=== PATIENT | male | born 1940 | race Caucasian/White ===

== ENCOUNTER 2019-07-24 19:09 | Inpatient (IN) | payer MEDICARE, OTHER ==
[~2019-07-24] VITALS: Ht 188 cm; Wt 100.0 kg
[~2019-07-24 19:09] MED LIST: ALBU8HFA PO; ASPI81TA52 PO; ATOR20TA PO; BETA1TAB19 PO; BUDE10.2 INH; CARV3.12 PO; FLUT16SP26 BOTHNARES; HYDR-4353 PO; LACT1CAP65 PO; MELO7.5T12 PO; METH4TAB81 PO; OMEG1CAP2; OMEP40CA13 PO; TICA90TA PO; [UNRECOGNIZED DRUG - CODE] PO
--- NOTE | 2019-07-24 20:06 | NUR ---
Patient in room . I have received report from Benjamin OCHOA at [facility] and had the opportunity to ask questions and assume patient care.
[2019-07-24 20:35] VITALS: BP 150/90
--- NOTE | 2019-07-24 20:54 | NUR ---
PAGER ID: [phone] MESSAGE: [phone] Benigno Lopez: Pt is a direct admit from [facility]. He has arrived to the floor. -Sydni OCHOA [phone]
[2019-07-24] MEDS ORDERED: ondansetron/PF 4mg/2ml inj IV PRN (21:05)
[2019-07-24] MEDS ORDERED: mag hydrox/Alum hydrox/simeth 30ml oral suspension PO PRN (21:05)
[2019-07-24] MEDS ORDERED: acetaminophen 325mg tablet PO PRN (21:05)
[2019-07-24] MEDS ORDERED: magnesium hydroxide 30ml (MOM) UD suspension PO PRN (21:05)
[2019-07-24] MEDS ORDERED: magnesium Cl slow-release 64mg tablet PO PRN (21:10)
[2019-07-24] MEDS ORDERED: magnesium 2GM in 50ml NS 50 ML IV PRN (21:10)
[2019-07-24] MEDS ORDERED: potassium Cl 20 mEq SR tablet PO PRN ×2 (21:10)
[2019-07-24] MEDS ORDERED: potassium CL 10mEq/100ml bag 100 ML IV PRN ×2 (21:10)
[2019-07-24] MEDS ORDERED: magnesium 4gm in 100ml NS 100 ML IV PRN (21:10)
--- NOTE | 2019-07-24 21:31 | NUR ---
PAGER ID: [phone] MESSAGE: [phone] Benigno Lopez: Pts med rec is complete. He would also like to discuss code status at some point. He does not want ventilation. -Sydni OCHOA [phone]
--- NOTE | 2019-07-24 21:39 | NUR ---
Patient arrived to the floor at 2030 via gurney as a direct admission from [facility]. Skin check complete. darting complete. VSS. Oriented patient to room, medication times, meal times, vital signs times, and unit policies.
[2019-07-24 22:00] VITALS: BP 152/94
[2019-07-24] MEDS ORDERED: fluticasone nasal spray 16GM bottle NS PRN (22:45)
[2019-07-24] MEDS ORDERED: albuterol 2.5 MG/3 ML nebule NEB PRN (22:45)
[2019-07-24] MEDS: budesonide 0.5mg/2ml UD nebule IH SCH (22:45)
[2019-07-25] VITALS (11 sets, daily range): BP systolic 107–164; BP diastolic 59–94
[2019-07-25] MEDS: albuterol 2.5 MG/3 ML nebule NEB SCH ×4 (02:00→20:55)
[2019-07-25 05:59] LABS: BASOPHILS # (AUTO) 0.1 X10'3 (0-0.2); BASOPHILS % (AUTO) 1.4 % (0-1); EOSINOPHILS # (AUTO) 0.1 X10'3 (0-0.9); EOSINOPHILS % (AUTO) 1.7 % (0-6); HEMATOCRIT 43.9 % (42.0-52.0); HEMOGLOBIN 14.3 g/dl (14.0-17.9); LYMPHOCYTES # (AUTO) 1.9 X10'3 (1.1-4.8); LYMPHOCYTES % (AUTO) 24.3 % (21-51); MEAN CORPUSCULAR HEMOGLOBIN 27.6 PG (27.0-31.0); MEAN CORPUSCULAR HGB CONC 32.5 g/dL (33.0-36.5); MEAN CORPUSCULAR VOLUME 85.1 FL (78-98); MEAN PLATELET VOLUME 7.2 FL (7.4-10.4); MONOCYTES # (AUTO) 0.7 X10'3 (0-0.9); MONOCYTES % (AUTO) 9.2 % (2-12); NEUTROPHILS # (AUTO) 4.8 X10'3 (1.8-7.7); NEUTROPHILS % (AUTO) 63.4 % (42-75); PLATELET COUNT 258 X10'3 (140-440); RED BLOOD COUNT 5.16 X10'6 (4.70-6.10); RED CELL DISTRIBUTION WIDTH 15.8 % (11.5-14.5); WHITE BLOOD COUNT 7.6 X10'3 (4.5-11.0)
--- NOTE | 2019-07-25 06:04 | NUR ---
Notified PAGER ID: [phone] MESSAGE: [phone] Benigno Lopez: c/o chest pain. needs order for nitro. ext [phone]
--- NOTE | 2019-07-25 06:17 | NUR ---
Problems reprioritized. Patient report given, questions answered & plan of care reviewed with Sofya OCHOA.
[2019-07-25] MEDS: nitroGLYCERIN 0.4mg SUBLingual tab SL PRN ×2 (06:20→15:10)
[2019-07-25 06:24] LABS: ALANINE AMINOTRANSFERASE 19 U/L (12-78); ALBUMIN 3.4 G/DL (3.4-5.0); ALKALINE PHOSPHATASE 70 IU/L (46-116); ANION GAP 10 (8-16); ASPARTATE AMINO TRANSFERASE 14 U/L (10-37); BILIRUBIN,TOTAL 0.5 MG/DL (0.1-1.0); BLOOD UREA NITROGEN 20 MG/DL (7-18); BUN/CREATININE RATIO 17.5 (5.4-32.0); CALCIUM 9.2 MG/DL (8.5-10.1); CHLORIDE 105 MMOL/L (99-107); CREATININE 1.14 MG/DL (0.60-1.10); GLUCOSE 92 MG/DL (70-104); MAGNESIUM 1.9 MG/DL (1.5-2.4); SODIUM 141 MMOL/L (135-145); TOTAL CARBON DIOXIDE 26.2 MMOL/L (24-32); TOTAL PROTEIN 6.7 G/DL (6.4-8.2); eGFR 62 ML/MIN
[2019-07-25] MEDS: HYDROcodone/acetaminophen 10/325mg tab PO PRN ×2 (06:57→13:36)
--- NOTE | 2019-07-25 07:00 | NUR ---
Patient in room PCU 3018. I have received report from Sofya OCHOA and had the opportunity to ask questions and assume patient care. During report was informed that the patient had been c/o chest pain and was just given a nitro at 0616, upon me entering the room after 0630 patient whad no c/o chest pain but was having back pain at that time and requesting a norco. Will continue to monitor.
--- NOTE | 2019-07-25 07:00 | NUR ---
Patient requested to have a norco, although there is hydrocodone and acetaminophen listed as an allergy. Patient states he takes norco at home for his chronic pain and that the allergy was from vicodin.
--- NOTE | 2019-07-25 07:30 | NUR ---
Patient was prepped for heart cath, other than a new PIV. Received in report that the patient is going to be cathed today.
[2019-07-25] MEDS: aspirin 81mg tablet.DR PO SCH (07:42)
[2019-07-25] MEDS: pantoprazole 40mg Tablet.DR PO SCH (07:42)
[2019-07-25] MEDS: atorvastatin 20mg tablet PO SCH (07:42)
[2019-07-25] MEDS: docusate sod 100mg capsule PO SCH ×2 (07:43→20:00)
[2019-07-25] MEDS: budesonide 0.5mg/2ml UD nebule IH SCH ×2 (07:57→20:55)
[2019-07-25] MEDS ORDERED: lisinopril 20mg tablet PO SCH (08:00)
[2019-07-25] MEDS: enoxaparin 40mg/0.4ml syringe SQ SCH (08:00)
[2019-07-25] MEDS ORDERED: HYDROchlorothiazide 25mg tablet PO SCH (08:00)
[2019-07-25] MEDS: MELOXICAM 7.5MG PO SCH (08:00)
[2019-07-25] MEDS ORDERED: carVEDilol 3.125mg tablet PO SCH (08:00)
[2019-07-25] MEDS: K and/or MAG REPLACEMENT MC SCH ×2 (08:41→20:00)
[2019-07-25] MEDS ORDERED: LISI1TAB32 PO (09:43)
[2019-07-25] MEDS ORDERED: PRAV20TA4 PO (09:47)
[2019-07-25] MEDS ORDERED: lisinopril 10 MG tablet PO SCH ×2 (09:50)
[2019-07-25] MEDS ORDERED: HYDROchlorothiazide 12.5mg capsule PO SCH (09:51)
[2019-07-25] MEDS ORDERED: FLU VACC QS2019-20 36MOS UP/PF 60 MCG/0.5 ML SYRINGE IMVAC ONE (10:00)
[2019-07-25] MEDS: acetylcysteine 200 MG/ml 4ml vial PO SCH ×2 (10:40→20:00)
--- NOTE | 2019-07-25 10:41 | NUR ---
Patient in room PCU 3018. I have received report from Sofya OCHOA and had the opportunity to ask questions and assume patient care. Patient is awake and oriented, and ambulatory at this time. Patient was c/o back pain and requesting a norco. Will address pain medication and continue to monitor.
--- NOTE | 2019-07-25 10:52 | NUR ---
Malnutrition consult: Patient's wt stable from documented wt hx. Unable to assess PO intake at this time as pt currently NPO however pt reporting a regular appetite per H&P. Pt with no significant decrease in muscle strength or edema. Pt currently does not meet criteria for malnutrition. Will continue to follow. Addendum: 07/25/19 at [address] Amended: Links added.
[2019-07-25] MEDS: normal saline 1000ml 1,000 ML IV SCH ×2 (11:45→20:36)
--- NOTE | 2019-07-25 11:51 | NUR ---
Rm 3018B,White. Pt needs PIV for heart cath, tried 1x. Please advise on eta. Thanks
--- NOTE | 2019-07-25 13:05 | NUR ---
spoke with Dr. Victoria at bedside, new orders obtained for NS and mucoMyst. Patient plan is to go down for heart cath later this afternoon. Will continue to monitor.
[2019-07-25] MEDS ORDERED: nitroGLYCERIN-Tridil 50MG/D5W 250 ML IV ONE (16:56)
[2019-07-25] MEDS ORDERED: heparin 1,000unit/ml 10ml vial 10 ML ONE (16:56)
[2019-07-25] MEDS ORDERED: iohexol 350MG/ML 100ml bottle IV ONE (16:56)
[2019-07-25] MEDS ORDERED: iohexol 350 MG/ML 50ML vial IV ONE (16:56)
[2019-07-25] MEDS ORDERED: LIDOcaine 1% (10mg/ml)w/preservative injection 20ml MDV ONE (16:56)
[2019-07-25] MEDS ORDERED: midazolam 2 mg/2 ml injection ONE (16:56)
[2019-07-25] MEDS ORDERED: fentaNYL/PF 50MCG/1 ML 2ML syringe ONE (16:56)
[2019-07-25] MEDS ORDERED: verapamil 2.5 mg/ml inj IV ONE (17:21)
--- NOTE | 2019-07-25 18:22 | NUR ---
Problems reprioritized. Patient report given, questions answered & plan of care reviewed with Rosas OCHOA.
--- NOTE | 2019-07-25 18:23 | NUR ---
Patient in room PCU 3018. I have received report from Tracie Ha RN and had the opportunity to ask questions and assume patient care.
[2019-07-25] MEDS: carvedilol 6.25mg tablet PO SCH (20:34)
--- NOTE | 2019-07-25 20:44 | NUR ---
patient refused the rest of the post op vitals.
--- NOTE | 2019-07-26 02:36 | NUR ---
Patient refused 0200 vitals
[2019-07-26] MEDS: albuterol 2.5 MG/3 ML nebule NEB SCH ×2 (03:33→08:23)
[2019-07-26 05:19] LABS: BASOPHILS % (AUTO) 0.6 % (0-1); EOSINOPHILS # (AUTO) 0.1 X10'3 (0-0.9); EOSINOPHILS % (AUTO) 1.5 % (0-6); HEMATOCRIT 41.5 % (42.0-52.0); HEMOGLOBIN 13.9 g/dl (14.0-17.9); LYMPHOCYTES # (AUTO) 1.7 X10'3 (1.1-4.8); LYMPHOCYTES % (AUTO) 21.1 % (21-51); MEAN CORPUSCULAR HEMOGLOBIN 28.4 PG (27.0-31.0); MEAN CORPUSCULAR HGB CONC 33.4 g/dL (33.0-36.5); MEAN CORPUSCULAR VOLUME 85.2 FL (78-98); MEAN PLATELET VOLUME 7.2 FL (7.4-10.4); MONOCYTES # (AUTO) 0.8 X10'3 (0-0.9); NEUTROPHILS # (AUTO) 5.4 X10'3 (1.8-7.7); NEUTROPHILS % (AUTO) 66.8 % (42-75); PLATELET COUNT 249 X10'3 (140-440); RED BLOOD COUNT 4.87 X10'6 (4.70-6.10); RED CELL DISTRIBUTION WIDTH 15.9 % (11.5-14.5)
[2019-07-26 05:36] LABS: ALANINE AMINOTRANSFERASE 20 U/L (12-78); ALBUMIN 3.1 G/DL (3.4-5.0); ALKALINE PHOSPHATASE 65 IU/L (46-116); ANION GAP 8 (8-16); ASPARTATE AMINO TRANSFERASE 15 U/L (10-37); BILIRUBIN,TOTAL 0.3 MG/DL (0.1-1.0); BLOOD UREA NITROGEN 22 MG/DL (7-18); BUN/CREATININE RATIO 17.6 (5.4-32.0); CALCIUM 8.9 MG/DL (8.5-10.1); CHLORIDE 106 MMOL/L (99-107); CREATININE 1.25 MG/DL (0.60-1.10); GLUCOSE 102 MG/DL (70-104); MAGNESIUM 1.9 MG/DL (1.5-2.4); PHOSPHORUS 3.6 MG/DL (2.3-4.5); POTASSIUM 3.8 MMOL/L (3.5-5.1); SODIUM 142 MMOL/L (135-145); TOTAL CARBON DIOXIDE 28.3 MMOL/L (24-32); TOTAL PROTEIN 6.1 G/DL (6.4-8.2); eGFR 55 ML/MIN
[2019-07-26 06:00] VITALS: BP 122/55
--- NOTE | 2019-07-26 06:18 | NUR ---
Problems reprioritized. Patient report given, questions answered & plan of care reviewed with Cherry OCHOA.
--- NOTE | 2019-07-26 06:39 | NUR ---
Patient in room PCU 3018. I have received report from DON Gayle and had the opportunity to ask questions and assume patient care. Patient currently sleeping in bed, bed locked and low, call light in reach, no acute distress, will continue to monitor.
[2019-07-26] MEDS: atorvastatin 20mg tablet PO SCH (08:00)
[2019-07-26] MEDS: docusate sod 100mg capsule PO SCH (08:00)
[2019-07-26] MEDS: MELOXICAM 7.5MG PO SCH (08:00)
[2019-07-26] MEDS ORDERED: ezetimibe 10mg tablet PO SCH (08:00)
[2019-07-26] MEDS: acetylcysteine 200 MG/ml 4ml vial PO SCH (08:00)
[2019-07-26] MEDS: K and/or MAG REPLACEMENT MC SCH (08:00)
[2019-07-26] MEDS: HYDROcodone/acetaminophen 10/325mg tab PO PRN (08:07)
[2019-07-26] MEDS: carvedilol 6.25mg tablet PO SCH (08:09)
[2019-07-26 08:11] VITALS: BP_SYST 122
[2019-07-26] MEDS: aspirin 81mg tablet.DR PO SCH (08:11)
[2019-07-26] MEDS: enoxaparin 40mg/0.4ml syringe SQ SCH (08:14)
[2019-07-26] MEDS: pantoprazole 40mg Tablet.DR PO SCH (08:17)
[2019-07-26] MEDS: budesonide 0.5mg/2ml UD nebule IH SCH (08:23)
[2019-07-26] MEDS ORDERED: FLU VACC QS2019-20 36MOS UP/PF 60 MCG/0.5 ML SYRINGE IMVAC ONE (10:00)
--- NOTE | 2019-07-26 11:53 | NUR ---
Received order for patient to discharge to home. Patient belongings gathered, telemetry removed, IV removed, catheter tip intact, hemostasis achieved, wrist bands removed. NO new medications. appt made with Dr. Victoria's office for August 15 at 9:15Am, patient informed of appointment. Patient taken to vehicle via wheelchair, able to transfer self into vehicle. Stable at time of discharge.
== END 2019-07-26 11:40 | disposition home or self-care (01) | DRG 287 ==
LOC: PCU 3S 20:28 → UNDOADMIN 20:28 → PCU 3S 20:40
PROVIDERS: ADMIT Internal Medicine; ATTEND Family Medicine
PROC: 4A023N7 Measurement of Cardiac Sampling and Pressure, Left Heart, Percutaneous Approach (ICD-10-PCS; principal; 2019-07-25)
PROC: B2111ZZ Fluoroscopy of Multiple Coronary Arteries using Low Osmolar Contrast (ICD-10-PCS; 2019-07-25)
PROC: B2151ZZ Fluoroscopy of Left Heart using Low Osmolar Contrast (ICD-10-PCS; 2019-07-25)
PROC: 3E02340 Introduction of Influenza Vaccine into Muscle, Percutaneous Approach (ICD-10-PCS; 2019-07-26)
DX: I25.10 Atherosclerotic heart disease of native coronary artery without angina pectoris (principal); I13.0 Hypertensive heart and chronic kidney disease with heart failure and stage 1 through stage 4 chronic kidney disease, or unspecified chronic kidney disease; E78.5 Hyperlipidemia, unspecified; I50.9 Heart failure, unspecified; I73.9 Peripheral vascular disease, unspecified; J44.9 Chronic obstructive pulmonary disease, unspecified; K21.9 Gastro-esophageal reflux disease without esophagitis; M19.90 Unspecified osteoarthritis, unspecified site; N18.9 Chronic kidney disease, unspecified; I25.2 Old myocardial infarction; Z79.899 Other long term (current) drug therapy; Z87.891 Personal history of nicotine dependence; Z98.41 Cataract extraction status, right eye; Z98.42 Cataract extraction status, left eye; Z23 Encounter for immunization; Z88.8 Allergy status to other drugs, medicaments and biological substances; Z88.5 Allergy status to narcotic agent
CPT/HCPCS: 36415; 76937; 80053; 83735; 84100; 85025; 87081; 93005; 93458; 94640; 94760; 99152; 99153; 99285; A4620; A5120; A6258; C1769; C1894; G0378; J1644; J1650; J2001; J2250; J3010; J3490; J7030; J7626; Q2037; Q9967

== ENCOUNTER 2019-08-07 16:00 | Emergency (ER) | payer OTHER ==
[~2019-08-07] VITALS: Ht 188 cm; Wt 105.5 kg
[~2019-08-07 16:00] MED LIST changes: -ATOR20TA PO; +LISI1TAB32 PO; -METH4TAB81 PO; +PRAV20TA4 PO; -TICA90TA PO; -[UNRECOGNIZED DRUG - CODE] PO
[2019-08-07 16:35] LABS: BASOPHILS # (AUTO) 0.1 X10'3 (0-0.2); BASOPHILS % (AUTO) 0.9 % (0-1); EOSINOPHILS # (AUTO) 0.1 X10'3 (0-0.9); EOSINOPHILS % (AUTO) 0.4 % (0-6); HEMATOCRIT 43.1 % (42.0-52.0); LYMPHOCYTES # (AUTO) 2.5 X10'3 (1.1-4.8); LYMPHOCYTES % (AUTO) 19.7 % (21-51); MEAN CORPUSCULAR HEMOGLOBIN 27.5 PG (27.0-31.0); MEAN CORPUSCULAR HGB CONC 32.5 g/dL (33.0-36.5); MEAN CORPUSCULAR VOLUME 84.6 FL (78-98); MONOCYTES # (AUTO) 1.2 X10'3 (0-0.9); MONOCYTES % (AUTO) 9.6 % (2-12); NEUTROPHILS # (AUTO) 8.7 X10'3 (1.8-7.7); NEUTROPHILS % (AUTO) 69.4 % (42-75); PLATELET COUNT 281 X10'3 (140-440); RED BLOOD COUNT 5.09 X10'6 (4.70-6.10); RED CELL DISTRIBUTION WIDTH 16.3 % (11.5-14.5); WHITE BLOOD COUNT 12.5 X10'3 (4.5-11.0)
[2019-08-07 17:01] LABS: ALANINE AMINOTRANSFERASE 17 U/L (12-78); ALBUMIN 3.4 G/DL (3.4-5.0); ALKALINE PHOSPHATASE 65 IU/L (46-116); ANION GAP 9 (8-16); ASPARTATE AMINO TRANSFERASE 15 U/L (10-37); BILIRUBIN,TOTAL 0.3 MG/DL (0.1-1.0); BLOOD UREA NITROGEN 25 MG/DL (7-18); BUN/CREATININE RATIO 19.4 (5.4-32.0); CALCIUM 8.5 MG/DL (8.5-10.1); CHLORIDE 106 MMOL/L (99-107); CREATININE 1.29 MG/DL (0.60-1.10); GLUCOSE 87 MG/DL (70-104); POTASSIUM 4.3 MMOL/L (3.5-5.1); SODIUM 138 MMOL/L (135-145); TOTAL CARBON DIOXIDE 23.3 MMOL/L (24-32); TOTAL PROTEIN 6.7 G/DL (6.4-8.2); eGFR 53 ML/MIN
[2019-08-07] MEDS ORDERED: AMOX-419 PO (17:48)
[2019-08-07 18:52] VITALS: BP 151/82
== END 2019-08-07 18:51 | disposition home or self-care (01) ==
LOC: ER 16:00
DX: J40 Bronchitis, not specified as acute or chronic (principal); I10 Essential (primary) hypertension; K21.9 Gastro-esophageal reflux disease without esophagitis; G89.29 Other chronic pain; Z98.890 Other specified postprocedural states; Z88.1 Allergy status to other antibiotic agents; Z88.5 Allergy status to narcotic agent; Z88.8 Allergy status to other drugs, medicaments and biological substances; Z79.2 Long term (current) use of antibiotics; Z79.82 Long term (current) use of aspirin; Z79.899 Other long term (current) drug therapy
CPT/HCPCS: 36415; 71045; 80053; 83880; 84484; 85025; 85610; 93005; 99285

== ENCOUNTER 2020-01-16 14:49 | Emergency (ER) | payer OTHER, MEDICARE ==
[~2020-01-16] VITALS: Ht 188 cm; Wt 104.0 kg
[2020-01-16 15:43] LABS: BASOPHILS # (AUTO) 0.1 X10'3 (0-0.2); BASOPHILS % (AUTO) 0.7 % (0-1); EOSINOPHILS # (AUTO) 0.2 X10'3 (0-0.9); EOSINOPHILS % (AUTO) 1.7 % (0-6); HEMATOCRIT 38.5 % (42.0-52.0); HEMOGLOBIN 12.4 g/dl (14.0-17.9); LYMPHOCYTES # (AUTO) 2.4 X10'3 (1.1-4.8); LYMPHOCYTES % (AUTO) 25.8 % (21-51); MEAN CORPUSCULAR HEMOGLOBIN 28.9 PG (27.0-31.0); MEAN CORPUSCULAR HGB CONC 32.3 g/dL (33.0-36.5); MEAN CORPUSCULAR VOLUME 89.5 FL (78-98); MEAN PLATELET VOLUME 7.4 FL (7.4-10.4); MONOCYTES # (AUTO) 0.9 X10'3 (0-0.9); NEUTROPHILS # (AUTO) 5.7 X10'3 (1.8-7.7); NEUTROPHILS % (AUTO) 61.8 % (42-75); PLATELET COUNT 252 X10'3 (140-440); RED CELL DISTRIBUTION WIDTH 13.6 % (11.5-14.5); WHITE BLOOD COUNT 9.2 X10'3 (4.5-11.0)
[2020-01-16 16:00] LABS: ALANINE AMINOTRANSFERASE 29 U/L (12-78); ALBUMIN 3.3 G/DL (3.4-5.0); ALBUMIN/GLOBULIN RATIO 1.1 (1.1-1.5); ALKALINE PHOSPHATASE 62 IU/L (46-116); ANION GAP 6 (8-16); ASPARTATE AMINO TRANSFERASE 21 U/L (10-37); BILIRUBIN,TOTAL 0.3 MG/DL (0.1-1.0); BLOOD UREA NITROGEN 22 MG/DL (7-18); BUN/CREATININE RATIO 16.5 (5.4-32.0); CALCIUM 8.6 MG/DL (8.5-10.1); CHLORIDE 106 MMOL/L (99-107); CREATININE 1.33 MG/DL (0.60-1.10); GLUCOSE 84 MG/DL (70-104); POTASSIUM 4.1 MMOL/L (3.5-5.1); SODIUM 140 MMOL/L (135-145); TOTAL CARBON DIOXIDE 27.6 MMOL/L (24-32); TOTAL PROTEIN 6.2 G/DL (6.4-8.2); eGFR 52 ML/MIN
--- NOTE | 2020-01-16 16:55 | NUR ---
pt is awating a 2 hr troponin lab then he will be re-evaluated
[2020-01-16 18:19] VITALS: BP 179/98
== END 2020-01-16 18:22 | disposition home or self-care (01) ==
LOC: ER 14:49
DX: R07.89 Other chest pain (principal); K30 Functional dyspepsia; I10 Essential (primary) hypertension; K21.9 Gastro-esophageal reflux disease without esophagitis; G89.29 Other chronic pain; Z98.890 Other specified postprocedural states; Z88.1 Allergy status to other antibiotic agents; Z88.8 Allergy status to other drugs, medicaments and biological substances; Z79.82 Long term (current) use of aspirin; Z79.899 Other long term (current) drug therapy
CPT/HCPCS: 36415; 71045; 80053; 83880; 84484; 85025; 93005; 99285

== ENCOUNTER 2022-06-17 09:17 | Inpatient (IN) | payer OTHER ==
[2022-06-17] VITALS (22 sets, daily range): BP systolic 119–169; BP diastolic 43–86
[~2022-06-17] VITALS: Ht 188 cm; Wt 96.0 kg
[~2022-06-17 09:17] MED LIST changes: -BETA1TAB19 PO; -BUDE10.2 INH; +CETI10TA15 PO; +COLC0.6T72 PO; +DEXA6TAB PO; +DICL100G30 TOP; +DOCUMENT DATE & TIME OF BETA-BLOCKER PO ONE; +HYDR30CR79 TOP; +LACT1CAP26 PO; -LACT1CAP65 PO; -LISI1TAB32 PO; +LISI20TA28 PO; -MELO7.5T12 PO; -OMEG1CAP2; +OMEG1CAP2 PO; -OMEP40CA13 PO; +OMEP40CA21 PO; +PHEN1SUP96 PR; +[UNRECOGNIZED DRUG - CODE] TP; +famotidine 20mg tablet PO ONE
[2022-06-17] MEDS ORDERED: PHENYLephrine 10mg/ml inj. 50 MG in normal saline 250ml IV soln 245 ML IV PRN (10:25)
[2022-06-17] MEDS: ringers solution, lacted 1,000 ML IV SCH ×2 (10:25→20:40)
[2022-06-17] MEDS ORDERED: nitroPRUSSIDE 0.2mg/mL in NS 100 ML IV PRN (10:25)
[2022-06-17 11:12] LABS: ALBUMIN 2.8 G/DL (3.4-5.0); ALBUMIN/GLOBULIN RATIO 0.8 (1.1-1.5); ALKALINE PHOSPHATASE 71 IU/L (46-116); BLOOD UREA NITROGEN 18 MG/DL (7-18); BUN/CREATININE RATIO 13.7 (5.4-32.0); CALCIUM 8.9 MG/DL (8.5-10.1); CHLORIDE 106 MMOL/L (99-107); CREATININE 1.31 MG/DL (0.60-1.10); PRE OP ALT 27 U/L (30-65); PRE OP ANION GAP 8 (8-16); PRE OP AST 28 U/L (10-37); PRE OP BILIRUB, TOTAL 0.3 MG/DL (0.0-1.0); PRE OP GLUCOSE 88 MG/DL (70-104); PRE OP SODIUM 141 MMOL/L (135-145); TOTAL CARBON DIOXIDE 26.7 MMOL/L (24-32); TOTAL PROTEIN 6.1 G/DL (6.4-8.2); eGFR 52 ML/MIN
[2022-06-17] MEDS ORDERED: diazepam 5mg tablet PO ONE (11:20)
[2022-06-17 11:45] LABS: BASOPHILS # (AUTO) 0.1 X10'3 (0-0.2); BASOPHILS % (AUTO) 1.4 % (0-1); EOSINOPHILS # (AUTO) 0.2 X10'3 (0-0.9); EOSINOPHILS % (AUTO) 1.9 % (0-6); HEMATOCRIT 31.5 % (42.0-52.0); HEMOGLOBIN 9.7 g/dl (14.0-17.9); LYMPHOCYTES # (AUTO) 1.4 X10'3 (1.1-4.8); LYMPHOCYTES % (AUTO) 16.2 % (21-51); MEAN CORPUSCULAR HEMOGLOBIN 24.8 PG (27.0-31.0); MEAN CORPUSCULAR VOLUME 80.1 FL (78-98); MEAN PLATELET VOLUME 6.7 FL (7.4-10.4); MONOCYTES # (AUTO) 0.6 X10'3 (0-0.9); MONOCYTES % (AUTO) 6.6 % (2-12); NEUTROPHILS # (AUTO) 6.2 X10'3 (1.8-7.7); NEUTROPHILS % (AUTO) 73.9 % (42-75); PLATELET COUNT 339 X10'3 (140-440); RED BLOOD COUNT 3.93 X10'6 (4.70-6.10); RED CELL DISTRIBUTION WIDTH 20.2 % (11.5-14.5); WHITE BLOOD COUNT 8.4 X10'3 (4.5-11.0)
[2022-06-17 11:52] LABS: CLARITY,URINE CLEAR (Clear); COLOR,URINE YELLOW (Yellow); GLUCOSE, URINE NEGATIVE (Neg); KETONES,URINE NEGATIVE (Neg); LEUKOCYTE ESTERASE ,URINE NEGATIVE (Neg); NITRITES, URINE NEGATIVE (Neg); OCCULT BLOOD,URINE NEGATIVE (Neg); PROTEIN,URINE NEGATIVE (Neg)
[2022-06-17 11:56] LABS: PRE OP INR 1.1 INR; PRE OP PROTIME 10.9 SECONDS (9.0-12.0)
[2022-06-17 11:58] LABS: UA COLLECTION TYPE CLN CATCH MIDSTREAM
[2022-06-17] MEDS ORDERED: heparin 10,000 units/1 ML INJ ONE (13:10)
[2022-06-17] MEDS ORDERED: LIDOcaine 1% 30ml preserv. free vial ONE (13:10)
[2022-06-17] MEDS ORDERED: morphine 2 MG/ML inj. syringe IV PRN (13:15)
[2022-06-17] MEDS ORDERED: ondansetron/PF 4mg/2ml inj IV PRN (13:15)
[2022-06-17] MEDS ORDERED: meperidine/PF 25mg/ml syringe IV PRN ×3 (13:15)
[2022-06-17] MEDS ORDERED: ringers solution, lacted 1,000 ML IV SCH (13:15)
[2022-06-17] MEDS ORDERED: morphine 4 MG/ML inj SYRINge IV PRN (13:15)
[2022-06-17] MEDS ORDERED: proCHLORperazine 10 MG/2 ml inj IV PRN (13:15)
[2022-06-17] MEDS ORDERED: FENTANYL CITRATE/PF 50 MCG/1 ML VIAL ONE (13:19)
[2022-06-17] MEDS ORDERED: midazolam 1 mg/ML 2ml injection ONE (13:19)
[2022-06-17] MEDS ORDERED: propofol inj 20 ML IV ONE (13:20)
[2022-06-17] MEDS ORDERED: rocuronium 10mg/ml inj IV ONE (13:20)
[2022-06-17] MEDS ORDERED: protamine sulfate 10mg/ml inj. ONE (13:26)
[2022-06-17] MEDS ORDERED: sevoflurane 250ml liquid IH ONE (13:38)
[2022-06-17] MEDS ORDERED: neostigmine methylsulfate 1 MG/ML 10ml vial ONE (13:38)
[2022-06-17] MEDS ORDERED: labetalol 20mg/4ml (5mg/ml) syringe IV ONE (13:38)
[2022-06-17] MEDS ORDERED: LIDOcaine 1% 30ml preserv. free vial IJ ONE (14:00)
[2022-06-17] MEDS ORDERED: heparin 10,000 units/1 ML INJ IR ONE (14:00)
[2022-06-17] MEDS ORDERED: heparin 1,000unit/ml 10ml vial 10 ML ONE (14:10)
[2022-06-17] MEDS ORDERED: ondansetron/PF 4mg/2ml inj ONE (15:12)
[2022-06-17] MEDS ORDERED: bacitracin 15gm ointment TP ONE (15:15)
[2022-06-17] MEDS ORDERED: dexamethasone sod phosphate 4mg/ml inj. ONE (15:17)
[2022-06-17] MEDS ORDERED: sugammadex 200mg/2ml injection IV ONE (15:19)
--- NOTE | 2022-06-17 15:32 | NUR ---
Received from OR via ICU bed, accompanied by Anesthesiologist and report given by Anesthesiologist. PATIENT WAKING UP, NO S/S bleeding mild pain in his head, V/S WNL, 20G TO megan CHANG drain in place with minimal drainage. neck dressing is dry and intact.
--- NOTE | 2022-06-17 15:50 | NUR ---
found mrs baer in waiting room, allowed her to visit her prior to ICU transfer, Pts headed home and did not wait to visit him in the ICU Pt medicated for headache and mild nausea with good results. neuro check remains intact, equal strengths in arms and legs, symmetrical face. speach is clear and pt is oriented to time, place and date.
--- NOTE | 2022-06-17 16:32 | NUR ---
pt transferred to icu with portable transport monitor used. pt remains alert and oriented, shown where to wait and how to reach the icu department. pt attached to icu monitors and neiro checks remain unchanged
[2022-06-17] MEDS: HYDROcodone/acetaminophen 10/325mg tab PO PRN (19:33)
[2022-06-18] VITALS (14 sets, daily range): BP systolic 110–137; BP diastolic 43–84
[2022-06-18] MEDS: HYDROcodone/acetaminophen 10/325mg tab PO PRN ×2 (00:19→09:22)
[2022-06-18 02:41] LABS: BASOPHILS # (AUTO) 0.1 X10'3 (0-0.2); BASOPHILS % (AUTO) 0.9 % (0-1); EOSINOPHILS % (AUTO) 0.1 % (0-6); HEMATOCRIT 27.4 % (42.0-52.0); HEMOGLOBIN 8.7 g/dl (14.0-17.9); LYMPHOCYTES # (AUTO) 0.7 X10'3 (1.1-4.8); MEAN CORPUSCULAR HEMOGLOBIN 24.7 PG (27.0-31.0); MEAN CORPUSCULAR HGB CONC 31.6 g/dL (33.0-36.5); MEAN CORPUSCULAR VOLUME 78.2 FL (78-98); MEAN PLATELET VOLUME 6.9 FL (7.4-10.4); MONOCYTES # (AUTO) 0.1 X10'3 (0-0.9); MONOCYTES % (AUTO) 1.6 % (2-12); NEUTROPHILS # (AUTO) 5.8 X10'3 (1.8-7.7); NEUTROPHILS % (AUTO) 87.4 % (42-75); PLATELET COUNT 304 X10'3 (140-440); RED CELL DISTRIBUTION WIDTH 19.8 % (11.5-14.5); WHITE BLOOD COUNT 6.6 X10'3 (4.5-11.0)
[2022-06-18 02:51] LABS: ALBUMIN 2.3 G/DL (3.4-5.0); ANION GAP 6 (8-16); BLOOD UREA NITROGEN 17 MG/DL (7-18); BUN/CREATININE RATIO 14.8 (5.4-32.0); CALCIUM 8.6 MG/DL (8.5-10.1); CHLORIDE 106 MMOL/L (99-107); CREATININE 1.15 MG/DL (0.60-1.10); GLUCOSE 180 MG/DL (70-104); POTASSIUM 4.4 MMOL/L (3.5-5.1); SODIUM 138 MMOL/L (135-145); TOTAL CARBON DIOXIDE 26.2 MMOL/L (24-32); eGFR 61 ML/MIN
[2022-06-18 03:57] LABS: ANISOCYTOSIS 2+; MICROCYTOSIS 1+; PLATELET ESTIMATE NORMAL; TOTAL CELLS COUNTED 100
[2022-06-18 03:58] LABS: ELLIPTOCYTES FEW
--- NOTE | 2022-06-18 11:17 | NUR ---
pt IV and DRAGAN drain d/c per order. pt leaving w/ tino to right neck. Pt educated on need for follow-up appointment to have tino d/c. contacted and is on her way. discharge instruction packet given. Pt VSS.
--- NOTE | 2022-06-18 13:29 | NUR ---
pt d/c with via wheelchair. all belongings w/ pt. vss. no c/o pain or suicidal ideation. Care relinquished to pt.
== END 2022-06-18 13:18 | disposition home or self-care (01) | DRG 39 ==
LOC: PAS IN 09:17 → CICU 2S 16:30
PROVIDERS: ADMIT Surgery; ATTEND Surgery
PROC: 03CM0ZZ Extirpation of Matter from Right External Carotid Artery, Open Approach (ICD-10-PCS; 2022-06-17)
PROC: 03CK0ZZ Extirpation of Matter from Right Internal Carotid Artery, Open Approach (ICD-10-PCS; 2022-06-17)
PROC: 03CH0ZZ Extirpation of Matter from Right Common Carotid Artery, Open Approach (ICD-10-PCS; principal; 2022-06-17 13:38)
DX: I65.21 Occlusion and stenosis of right carotid artery (principal); I48.91 Unspecified atrial fibrillation; D63.8 Anemia in other chronic diseases classified elsewhere; J44.9 Chronic obstructive pulmonary disease, unspecified; M10.9 Gout, unspecified; E78.5 Hyperlipidemia, unspecified; M54.9 Dorsalgia, unspecified; F41.9 Anxiety disorder, unspecified; K21.9 Gastro-esophageal reflux disease without esophagitis; I73.9 Peripheral vascular disease, unspecified; I10 Essential (primary) hypertension; F43.10 Post-traumatic stress disorder, unspecified; G62.9 Polyneuropathy, unspecified; G89.29 Other chronic pain
CPT/HCPCS: 36415; 80048; 80053; 81003; 85007; 85025; 85610; 85730; 86885; 86900; 86901; 95813; 95816; A4618; A6258; A7000; G0378; J0690; J0780; J1100; J1644; J2250; J2270; J2405; J2704; J2710; J2720; J3010; J3490; J7040; J7060; J7120

== ENCOUNTER 2024-09-06 09:45 | Day surgery (SDC) | payer MEDICARE, OTHER ==
[~2024-09-06] VITALS: Ht 188 cm; Wt 91.5 kg
[~2024-09-06 09:45] MED LIST changes: -DICL100G30 TOP; +DICL100G59 TOP; -DOCUMENT DATE & TIME OF BETA-BLOCKER PO ONE; -famotidine 20mg tablet PO ONE
[2024-09-06] MEDS ORDERED: atropine 0.1mg/ml 10ml syringe IV ONE (10:20)
[2024-09-06] MEDS ORDERED: diphenhydrAMINE 25mg capsule PO ONE (10:20)
[2024-09-06] MEDS ORDERED: amiodarone 150mg/dext, iso-os 100 ML IV ONE (10:20)
[2024-09-06] MEDS ORDERED: LORazepam 0.5 MG tablet PO ONE (10:20)
[2024-09-06 10:30] VITALS: BP 159/71; PULSE 74; RESP 16; TEMP 99; O2SAT 96
[2024-09-06] MEDS ORDERED: CARV-49 PO (10:35)
[2024-09-06] MEDS ORDERED: ATOR20TA PO (10:38)
[2024-09-06] MEDS ORDERED: AMIT-274 PO (10:39)
[2024-09-06] MEDS ORDERED: DOCU100C40 PO (10:40)
[2024-09-06] MEDS ORDERED: APIX5TAB3 PO (10:41)
[2024-09-06] MEDS ORDERED: AMI200T PO (10:42)
[2024-09-06] MEDS ORDERED: MELO-100 PO (10:42)
[2024-09-06 12:29] VITALS: BP 162/83; PULSE 70; RESP 12; O2SAT 100
[2024-09-06 12:31] VITALS: BP_SYST 162; BP_SYST 172; BP_DIAS 83; BP_DIAS 94; PULSE 70; RESP 12; RESP 15; O2SAT 100; O2SAT 98
[2024-09-06 12:33] VITALS: BP 185/88; PULSE 68; RESP 14; O2SAT 99
[2024-09-06 12:35] VITALS: BP_SYST 181; BP_SYST 185; BP_DIAS 87; BP_DIAS 88; PULSE 67; PULSE 68; RESP 14; RESP 16; O2SAT 100; O2SAT 98; O2SAT 99
[2024-09-06] MEDS: normal saline 1000ml 1,000 ML IV SCH (12:41)
[2024-09-06] MEDS: MIDAZolam 1mg/ml 10ml vial IV ONE (12:41)
[2024-09-06] MEDS: morphine 10mg/ml inj. IV ONE (12:41)
== END 2024-09-06 13:45 | disposition home or self-care (01) ==
LOC: SSTAY O 09:45
PROVIDERS: ATTEND Internal Medicine Cardiovascular Disease
DX: I48.0 Paroxysmal atrial fibrillation (principal); E78.5 Hyperlipidemia, unspecified; I25.2 Old myocardial infarction; J44.9 Chronic obstructive pulmonary disease, unspecified; I11.0 Hypertensive heart disease with heart failure; I73.9 Peripheral vascular disease, unspecified; I50.32 Chronic diastolic (congestive) heart failure; I25.10 Atherosclerotic heart disease of native coronary artery without angina pectoris; Z88.8 Allergy status to other drugs, medicaments and biological substances; Z80.8 Family history of malignant neoplasm of other organs or systems; Z82.49 Family history of ischemic heart disease and other diseases of the circulatory system; Z95.5 Presence of coronary angioplasty implant and graft; Z96.653 Presence of artificial knee joint, bilateral; Z98.41 Cataract extraction status, right eye; Z98.42 Cataract extraction status, left eye; Z86.73 Personal history of transient ischemic attack (TIA), and cerebral infarction without residual deficits
CPT/HCPCS: 92960; 93005; J2250; J2270; J7030; J2274